=== PATIENT | male | born 1970 | race Caucasian/White ===

== ENCOUNTER 2019-05-06 16:27 | Emergency (ER) | payer SELFPAY ==
[~2019-05-06] VITALS: Ht 177.8 cm; Wt 99.8 kg
[2019-05-06 16:30] VITALS: BP 150/80
--- NOTE | 2019-05-06 16:33 | NUR ---
TO LOBBY A/W BED AMBULATORY
--- NOTE | 2019-05-06 17:55 | NUR ---
PT AMBULATED TO ER BED 04
--- NOTE | 2019-05-06 17:59 | NUR ---
48/M BIB SELF C/O BILATERAL UPPER ABDOMINAL PAIN X 1 WEEK. PATIENT STATES PAIN OF 5/10 AT THIS TIME. PATIENT POSITIONED FOR COMFORT; HOB ELEVATED; BEDRAILS UP X1; BED DOWN. ER MD MADE AWARE OF PT STATUS.
--- NOTE | 2019-05-06 18:43 | NUR ---
Patient being evaluated by DR RINCON at bedside.
[2019-05-06] MEDS ORDERED: LISINOPRIL 20 MG TAB PO ONE (18:50)
--- NOTE | 2019-05-06 18:58 | NUR ---
LAB AT BEDSIDE
[2019-05-06 19:12] LABS: BASOPHILS % (AUTO) 0.8 % (0.0-2.0); EOSINOPHILS # (AUTO) 0.1 K/uL (0-0.4); EOSINOPHILS % (AUTO) 1.1 % (0.0-4.0); HEMATOCRIT 32.9 % (36-52); HEMOGLOBIN 9.7 g/dL (12.0-18.0); LYMPHOCYTES # (AUTO) 1.3 K/uL (2.0-11.5); LYMPHOCYTES % (AUTO) 27.6 % (20.5-51.1); MEAN CORPUSCULAR HEMOGLOBIN 19 pg (27-31); MEAN CORPUSCULAR HGB CONC 30 g/dL (33-37); MEAN CORPUSCULAR VOLUME 62.6 fL (80-94); MONOCYTES # (AUTO) 0.4 K/uL (0.8-1.0); MONOCYTES % (AUTO) 8.4 % (1.7-9.3); NEUTROPHILS # (AUTO) 2.9 K/uL (1.8-7.7); NEUTROPHILS % (AUTO) 62.1 % (42.2-75.2); PLATELET COUNT (AUTO) 280 K/uL (140-450); RED BLOOD CELL COUNT(AUTO) 5.25 MIL/uL (4.20-6.10); RED CELL DISTRIBUTION WIDTH 19.6 % (11.6-13.7); WHITE BLOOD COUNT (AUTO) 4.6 K/uL (4.8-10.8)
--- NOTE | 2019-05-06 19:13 | NUR ---
Pt report given to GRACIELA SHORE. Transfer of care at this time.
[2019-05-06 19:27] LABS: ANION GAP 11.2 (8-16); CARBON DIOXIDE 28.7 mmol/L (21-32); CREATININE 1.1 mg/dL (0.7-1.3); POTASSIUM 3.9 mmol/L (3.5-5.1)
[2019-05-06 19:35] LABS: ALBUMIN 4.3 g/dL (3.4-5.0); TOTAL BILIRUBIN 0.3 mg/dL (0.0-1.0)
[2019-05-06 19:45] VITALS: BP 108/61
--- NOTE | 2019-05-06 19:45 | NUR ---
PT DISCHARGED BY DR RINCON. PAPERWORK PROVIDED. EDUCATED PT REGARDING D/C DIAGNOSIS AND INSTRUCTIONS. TOLD PT TO FOLLOW UP WITH PCP AND WHEN TO RETURN TO ED. PT A STABLE CONDITION. ALL QUESTIONS ANSWERED.
== END 2019-05-06 19:45 | disposition home or self-care (01) ==
LOC: MED 16:27
DX: I10 Essential (primary) hypertension (principal); F41.9 Anxiety disorder, unspecified; R10.11 Right upper quadrant pain; R10.12 Left upper quadrant pain; F17.200 Nicotine dependence, unspecified, uncomplicated; Z88.0 Allergy status to penicillin; Z98.890 Other specified postprocedural states
CPT/HCPCS: 36415; 80053; 85025; 93005; 99284

== ENCOUNTER 2022-04-16 18:12 | Emergency (ER) | payer MEDICAID ==
[~2022-04-16] VITALS: Ht 162.6 cm; Wt 103.4 kg
[2022-04-16 18:36] VITALS: BP 134/82
[2022-04-16] MEDS ORDERED: LIDO100S PO (20:06)
[2022-04-16] MEDS ORDERED: IBUP-2213 PO (20:06)
[2022-04-16] MEDS ORDERED: PROM118S5 PO (20:06)
[2022-04-16 20:13] VITALS: BP 134/82
--- NOTE | 2022-04-16 20:13 | NUR ---
Patient discharged with v/s stable. Written and verbal after care instructions given and explained. Patient alert, oriented and verbalized understanding of instructions. Ambulatory with steady gait. All questions addressed prior to discharge. ID band removed. Patient advised to follow up with PMD. Rx of IBUPROFEN,LIDOCAINE, PROMETHAZINE given. Patient educated on indication of medication including possible reaction and side effects. Opportunity to ask questions provided and answered.
== END 2022-04-16 20:13 | disposition home or self-care (01) ==
LOC: MED 18:12
DX: U07.1 COVID-19 (principal); J06.9 Acute upper respiratory infection, unspecified; J11.1 Influenza due to unidentified influenza virus with other respiratory manifestations; B34.9 Viral infection, unspecified; I10 Essential (primary) hypertension; E78.5 Hyperlipidemia, unspecified; E11.9 Type 2 diabetes mellitus without complications; Z88.0 Allergy status to penicillin; Z98.890 Other specified postprocedural states
CPT/HCPCS: 99283